=== PATIENT | male | born 1955 | race Caucasian/White ===

== ENCOUNTER 2017-11-23 20:35 | Emergency (ER) | payer OTHER ==
[2017-11-23 20:42] VITALS: BP 131/69
--- NOTE | 2017-11-23 21:32 | XRAY Report ---
EXAM: LEFT FOOT RADIOGRAPHY EXAM DATE: 11/23/2017 09:16 PM. CLINICAL HISTORY: Injury to 2nd toe. COMPARISON: None. TECHNIQUE: 3 views. FINDINGS: Bones: No fracture or bone lesion. Joints: Degenerative changes of the interphalangeal joints. No subluxations. Soft Tissues: No focal soft tissue swelling. IMPRESSION: No acute osseus abnormality. [facility] Referring Provider Line: [phone] SITE ID: [id number]
--- NOTE | 2017-11-23 21:56 | ED Physician Documentation ---
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 a few hours ago with moderate pain but declines pain medication.) Review of Systems Constitutional: reports: Reviewed and negative Throat: reports: Reviewed and negative Cardiac: reports: Reviewed and negative PD PAST MEDICAL HISTORY - Past Medical History Past Medical History: No - Past Surgical History Past Surgical History: Yes - Social History Does the pt smoke?: No Smoking Status: Never smoker Does the pt drink ETOH?: No Does the pt have substance abuse?: No - Immunizations Immunizations are current?: No - POLST Patient has POLST: No PD ED PE NORMAL - Vitals Vital signs reviewed: Yes - General General: Alert and oriented X 3, No acute distress - Extremities Extremities: Other (There is abrasion, tenderness, and ecchymosis over the dorsum of the left second toe and an abrasion on the quinn without underlying normal neurovascular status and pulses.) - Neuro Neuro: Alert and oriented X 3, Normal speech Results - Vitals Vitals: Vital Signs - 24 hr 11/23/17 20:38 Temperature 35.9 C L Heart Rate 59 L Respiratory 16 Rate Blood Pressure 131/69 H O2 Saturation 96 Oxygen O2 Source Room air - Rads (name of study) L foot 3v Radiology: EMP read contemporaneously (NAD) Departure - Departure Disposition: 01 Home, Self Care Clinical Impression: Crushed toe Qualifiers: Encounter type: initial encounter Laterality: left Qualified Code(s): S97.102A - Crushing injury of unspecified left toe(s), initial encounter Condition: Good Record reviewed to determine appropriate education?: Yes Instructions: ED Crush Injury Foot Toe No Fx Comments: Recheck with your doctor in 1 week if not better. Return if worse. Your blood pressure was elevated today on check into the emergency department. This does not mean that you have hypertension, it is a common phenomenon to come to the emergency department and have elevated blood pressure. I recommend that you see your primary care physician within the week to have it rechecked when you are feeling better.
== END 2017-11-23 22:07 | disposition home or self-care (01) ==
LOC: ED 20:35
DX: S97.102A Crushing injury of unspecified left toe(s), initial encounter (principal); S90.415A Abrasion, left lesser toe(s), initial encounter; W22.8XXA Striking against or struck by other objects, initial encounter; Y99.0 Civilian activity done for income or pay; R03.0 Elevated blood-pressure reading, without diagnosis of hypertension
CPT/HCPCS: 99282; 99283